=== PATIENT | female | born 1960 | race African-American/Black ===

== ENCOUNTER 2022-12-08 16:34 | Emergency (ER) | payer MEDICAID ==
[~2022-12-08] VITALS: Ht 167.6 cm; Wt 79.4 kg
[2022-12-08 16:44] VITALS: BP 150/91
[2022-12-08] MEDS ORDERED: KETOROLAC 15 MG/ML VIAL IM ONE (17:35)
[2022-12-08 18:09] LABS: BASOPHILS % (AUTO) 0.5 % (0.0-2.0); EOSINOPHILS # (AUTO) 0.1 K/uL (0-0.4); HEMATOCRIT 39.4 % (36-48); HEMOGLOBIN 12.9 g/dL (12.0-16.0); LYMPHOCYTES # (AUTO) 2.4 K/uL (2.5-16.5); LYMPHOCYTES % (AUTO) 32.3 % (20.5-51.1); MEAN CORPUSCULAR HEMOGLOBIN 29 pg (27-31); MEAN CORPUSCULAR HGB CONC 33 g/dL (33-37); MEAN CORPUSCULAR VOLUME 87.2 fL (80-94); MONOCYTES # (AUTO) 0.8 K/uL (0.8-1.0); MONOCYTES % (AUTO) 11.4 % (1.7-9.3); NEUTROPHILS # (AUTO) 3.9 K/uL (1.8-7.7); NEUTROPHILS % (AUTO) 53.8 % (42.2-75.2); PLATELET COUNT (AUTO) 210 K/uL (140-450); RED BLOOD CELL COUNT(AUTO) 4.52 MIL/uL (4.20-5.40); RED CELL DISTRIBUTION WIDTH 15.2 % (11.6-13.7); WHITE BLOOD COUNT (AUTO) 7.3 K/uL (4.8-10.8)
[2022-12-08 18:24] LABS: CARBON DIOXIDE 32.4 mmol/L (21-32); CREATININE 1.6 mg/dL (0.6-1.3); TOTAL BILIRUBIN 0.3 mg/dL (0.0-1.0)
[2022-12-08 18:34] LABS: ANION GAP 9.4 (8-16)
[2022-12-08 18:39] LABS: POTASSIUM 2.8 mmol/L (3.5-5.1)
[2022-12-08] MEDS ORDERED: KETOROLAC 15 MG/ML VIAL ONE (19:28)
--- NOTE | 2022-12-08 19:35 | NUR ---
Assumed care of patient c/o generalized pain. Assisted to restroom with gait steady.
[2022-12-08] MEDS ORDERED: POTASSIUM CHLORIDE 10 MEQ TABER PO ONE ×2 (19:55)
--- NOTE | 2022-12-08 20:08 | NUR ---
Dr. Daugherty by bedside
[2022-12-08] MEDS ORDERED: ALBU0.0912 IH (20:24)
[2022-12-08] MEDS ORDERED: MECL-303 PO (20:24)
[2022-12-08 20:30] VITALS: BP 128/91
--- NOTE | 2022-12-08 20:30 | NUR ---
Patient discharged with v/s stable. Written and verbal after care instructions given and explained. New RX for albuterol sulfate, meclizine. Patient verbalized understanding. Ambulatory with steady gait. All questions addressed prior to discharge. Advised to follow up with PMD.
== END 2022-12-08 20:30 | disposition home or self-care (01) ==
LOC: MED 16:34
DX: R07.89 Other chest pain (principal); R42 Dizziness and giddiness; M25.512 Pain in left shoulder; E87.6 Hypokalemia; F41.9 Anxiety disorder, unspecified; I10 Essential (primary) hypertension; Z79.899 Other long term (current) drug therapy; Z88.5 Allergy status to narcotic agent; Z88.0 Allergy status to penicillin
CPT/HCPCS: 36415; 71045; 73030; 80053; 83880; 84484; 85025; 93005; 96372; 99285; J1885; Q0092